=== PATIENT | male | born 1945 | race Caucasian/White ===

== ENCOUNTER → 2017-01-04 08:48 | Emergency (ER) | payer SELFPAY ==
[~2017-01-04 08:48] MED LIST: Acetaminop/Codeine 30 MG TAB* 1 TAB (300 MG/30 MG) PO ONE
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
--- NOTE | 2017-01-04 11:07 | RAD ---
Indication: Rib pain on the left. 3 views of left ribs demonstrates nondisplaced fracture of the left 10th, ninth and eighth ribs anterolaterally. Minimal displacement is noted. No pneumothorax is noted. IMPRESSION: Fracture of the left eighth, ninth and likely 10th ribs anterolaterally.
[2017-01-04 11:47] VITALS: BP 126/84
== END | disposition home or self-care (01) ==
LOC: ED 08:48
DX: S22.42XA Multiple fractures of ribs, left side, initial encounter for closed fracture (principal); R07.89 Other chest pain; Z87.891 Personal history of nicotine dependence; V49.9XXA Car occupant (driver) (passenger) injured in unspecified traffic accident, initial encounter; Y93.9 Activity, unspecified; Y92.9 Unspecified place or not applicable; Y99.9 Unspecified external cause status
CPT/HCPCS: 71250; 74176; 93005; 99282; A9270-GY